=== PATIENT | male | born 1975 | race Caucasian/White ===

== ENCOUNTER 2022-06-07 04:52 | Emergency (ER) | payer OTHER, SELFPAY ==
[2022-06-07 05:00] VITALS: BP 143/100; PULSE 92; RESP 18; TEMP 36.1; O2SAT 97
--- NOTE | 2022-06-07 05:37 | CRLHL7_ITS ---
For Patients: As a result of the Century Cures Act, medical imaging exams and procedure reports are released immediately into your electronic medical record. You may view this report before your referring provider. If you have questions, please contact your health care provider. INDICATION: RT SIDED RIB PAIN TECHNIQUE: Chest and right ribs 3 views. COMPARISON: None FINDINGS: Cardiovascular and mediastinum: Heart size and vasculature are normal in caliber and appearance. Mediastinum is within normal limits. Lungs and pleural spaces: Lungs are clear. No sign of infiltrate. No sign of pleural effusion. No pneumothorax. Bones and soft tissues: Detailed oblique images of the right ribs demonstrate no fractures or bone lesions. IMPRESSION: Unremarkable chest and right ribs. Dictated by Danish Alfaro MD @ 06/07/2022 6:58:56 AM (Electronically Signed)
[2022-06-07 06:50] VITALS: PULSE 82; RESP 18; O2SAT 98
--- NOTE | 2022-06-07 07:06 | ED.GENADULT ---
HPI - General Adult General Chief complaint: Rib Pain Stated complaint: Rib Pain Time Seen by Provider: 06/07/22 05:33 History of Present Illness HPI narrative: 47-year-old man presenting here with complaint of right-sided rib area pain. Apparently was helping last week his son gets normal build stuck when got tossed into a tree stump. Has had pain in what sounds like the impact site on that right side since that time but tolerable. Tonight rolled over on it and heard/felt a pop in has had marked increase in pain. No fever. No coughing. Not exactly short of breath. Has had rib fractures in the past and this feels similar. Related Data Allergies Allergy/AdvReac Type Severity Reaction Status Date / Time No Known Drug Allergies Allergy Verified 06/07/22 05:00 Review of Systems Status of ROS: Reports: 6 or more systems reviewed and unremarkable except as noted in History and below [facility] Social History Smoking Status: Unknown if ever smoked Non-prescribed substance use: denies use service: No Exam Narrative: Exam Narrative: Direct in communication. Standing at the bed. Seems a little restless in discomfort. Phonating breathing easily. Lungs appear to be clear. Deep inspiratory effort seems more uncomfortable. I do not see a word area of trauma. Cardiovascular with elevated heart rate regular rhythm. There is pain to palpation at the left low mid axillary ribs. Oppositional compression testing does not really elicit further pain. Abdomen otherwise is soft and nontender. Const: Vital Signs, click to edit/add: Vital Signs - 24 hr 06/07/22 05:00 06/07/22 06:50 Temperature 97.0 F L Pulse Rate [Right Pulse Oximeter] 92 82 Respiratory Rate 18 18 Blood Pressure [Ri ght Upper Arm] 143/100 H Pulse Oximetry 97 98 Oxygen Delivery Me thod Room Air Room Air Documenting provider has reviewed patient's vital signs: yes Course Vital Signs Vital signs: Initial Vital Signs Temperature 97.0 F L 06/07/22 05:00 Temperature Source Temporal Artery Scan 06/07/22 05:00 Pulse Rate 92 06/07/22 05:00 Pulse Rhythm 06/07/22 05:00 Respiratory Rate 18 06/07/22 05:00 Blood Pressure 143/100 H 06/07/22 05:00 Blood Pressure Mean 114 06/07/22 05:00 Blood Pressure Position Sitting 06/07/22 05:00 Pulse Oximetry 97 06/07/22 05:00 Oxygen Delivery Method 06/07/22 05:00 Vital Signs Temperature 97.0 F L 06/07/22 05:00 Pulse Rate 92 06/07/22 05:00 Respiratory Rate 18 06/07/22 05:00 Blood Pressure 143/100 H 06/07/22 05:00 Pulse Oximetry 97 06/07/22 05:00 Oxygen Delivery Method 06/07/22 05:00 Temperature 97.0 F L 06/07/22 05:00 Pulse Rate 82 06/07/22 06:50 Respiratory Rate 18 06/07/22 06:50 Blood Pressure 143/100 H 06/07/22 05:00 Pulse Oximetry 98 06/07/22 06:50 Oxygen Delivery Method 06/07/22 06:50 Medical Decision Making MDM Narrative Medical decision making narrative: I do think very reasonable to do rib imaging here. He did not want anything for pain. Reviewed these images myself and while there are some sharper angulations to these lower lateral rib area I do not see clear cortical disruption consistent with fracture. I do think though that is given appearance and clinical story that there might be an occult fracture here. We did place a rib binder and this did help discomfort. Discharge Plan Discharge Clinical Impression: Fracture, ribs Patient Disposition: Home, Self-Care Condition: Improved Additional Instructions: Can use this rib binder for comfort. While using it take few deep breaths daily to better expand your lungs. I will call you with radiology report. In the short term can take up to 800 mg of ibuprofen per dose or alternatively up to 500 mg naproxen 2 times daily. Either can be combined with up to 1000 mg of acetaminophen per dose. You might also lidocaine patches centered over the area that hurts, topical ibuprofen type gels or creams as well. These can be purchased [id number]. Follow Up/Referrals: Ricky Robertson MD [Primary Care Provider] - Stand Alone Forms: [facility] Info Instructions
== END 2022-06-07 06:54 | disposition home or self-care (01) ==
PROVIDERS: Emergency Provider Family Medicine; PCP Family Medicine
DX: S22.41XA Multiple fractures of ribs, right side, initial encounter for closed fracture (principal); W31.9XXA Contact with unspecified machinery, initial encounter; Y93.9 Activity, unspecified; Y92.9 Unspecified place or not applicable; Y99.9 Unspecified external cause status
CPT/HCPCS: 71101; 99283